=== PATIENT | male | born 1955 | race Caucasian/White ===

== ENCOUNTER 2017-06-09 09:58 | Emergency (ER) | payer OTHER ==
[2017-06-09 10:06] VITALS: BMI 26.7
[2017-06-09 10:08] VITALS: TEMP 98.5
[2017-06-09 11:04] LABS: URINE BILIRUBIN NEGATIVE (NEGATIVE); URINE BLOOD 1+ (NEGATIVE); URINE CLARITY Clear (Clear); URINE COLOR Yellow (YELLOW); URINE GLUCOSE (UA) NORMAL (Normal); URINE LEUKOCYTE ESTERASE NEG Leu/uL (Negative); URINE NITRATE NEGATIVE (NEGATIVE); URINE PROTEIN 1+ mg/dL (NEGATIVE); URINE UROBILINOGEN NORMAL mg/dL (0.2-1.0)
[2017-06-09] MEDS ORDERED: Lactated Ringer's 1,000 ML IV ONE (11:04)
--- NOTE | 2017-06-09 11:09 | C.PDOC ---
History Of Present Illness Patient is a 62 y/o male who presents to the ED with a complaint of left flank pain for the last few days. Patient admits pain is localized with intermittent radiation to left abdominal wall; worsens with movement. Denies fever, chills, headache, dizziness, CP, SOB, dyspnea, diaphoresis, palpitation, abdominal pain , vomiting, diarrhea, UTI symptoms, hematuria. Ambulate to ED for evaluation, appears in pain. Time Seen by Provider: 06/09/17 10:23 Chief Complaint (Nursing): Male Genitourinary History Per: Patient History/Exam Limitations: no limitations Onset/Duration Of Symptoms: Days Current Symptoms Are (Timing): Still Present Quality Of Discomfort: "Pain" Associated Symptoms: denies: Fever, Chills, Vomiting, Diarrhea, Urinary Symptoms Recent travel outside of the [place]: No Past Medical History Reviewed: Historical Data, Nursing Documentation, Vital Signs Vital Signs: Last Vital Signs Temp 98.5 F 06/09/17 10:06 Pulse 78 06/09/17 13:39 Resp 20 06/09/17 13:39 BP 132/80 06/09/17 13:39 Pulse Ox 100 06/09/17 15:18 - Medical History PMH: No Chronic Diseases Surgical History: No Surg Hx Family History: States: Unknown Family Hx - Social History Hx Alcohol Use: Yes Hx Substance Use: No - Immunization History Hx Tetanus Toxoid Vaccination: No Hx Influenza Vaccination: No Hx Pneumococcal Vaccination: No Review Of Systems Constitutional: Negative for: Fever, Chills Gastrointestinal: Positive for: Other (left flank pain). Negative for: Vomiting , Abdominal Pain, Diarrhea Physical Exam - Physical Exam Appears: Well, Non-toxic, No Acute Distress, Other (uncomfortable, in pain) Skin: Normal Color, Warm, Dry, No Rash Head: Normacephalic Eye(s): bilateral: PERRL Nose: No Flaring Oral Mucosa: Moist Throat: No Erythema Neck: Supple Chest: Symmetrical Cardiovascular: Rhythm Regular, No Murmur Respiratory: No Decreased Breath Sounds, No Accessory Muscle Use, No Rales, No Rhonchi, No Wheezing Gastrointestinal/Abdominal: Soft, No Tenderness, No Distention, No Guarding, No Rebound, Other (Left flank tenderness) Back: No CVA Tenderness Extremity: Normal ROM, No Swelling Neurological/Psych: Oriented x3, Normal Speech, Normal Cognition ED Course And Treatment - Laboratory Results Result Diagrams: 06/09/17 11:50 06/09/17 11:50 Lab Interpretation: Normal O2 Sat by Pulse Oximetry: 100 Pulse Ox Interpretation: Normal - CT Scan/US A/P Other Rad Studies (CT/US): Interpreted By Me, Read By Radiologist CT/US Interpretation: PROCEDURE: CT Abdomen and Pelvis without intravenous contrast. HISTORY: abd pain, left flank pain. COMPARISON: None. TECHNIQUE: Axial and reformatted coronal and sagittal CT images of the abdomen and pelvis were obtained without IV or oral contrast administration.. Contrast Dose : 0. Radiation dose: Total exam DLP = 403.19 mGy-cm. This CT exam was performed using one or more of the following dose reduction techniques: Automated exposure control, adjustment of the mA and/or kV according to patient size, and/or use of iterative reconstruction technique. FINDINGS: LOWER THORAX : Unremarkable. LIVER: Unremarkable. No gross lesion or ductal dilatation. GALLBLADDER AND BILE DUCTS: Unremarkable. PANCREAS: Unremarkable. No gross lesion or ductal dilatation. SPLEEN: Unremarkable. ADRENALS: Unremarkable. No mass. KIDNEYS AND URETERS: There is mild left hydronephrosis and hydroureter up to 6.5 x 4.1 millimeter calcaneus at the distal left ureter adjacent to the UV junction. No evidence of right hydronephrosis. No evidence of other renal calculi. VASCULATURE: Unremarkable. No aortic aneurysm. BOWEL : Unremarkable. No obstruction. No gross mural thickening. APPENDIX: Unremarkable. Normal appendix. PERITONEUM: Unremarkable. No free fluid. No free air. LYMPH NODES: Unremarkable. No enlarged lymph nodes. BLADDER: Mild diffuse urinary bladder wall thickening is noted PE. REPRODUCTIVE: Moderately enlarged heterogeneous prostate is also noted. BONES: No acute fracture. OTHER FINDINGS: None. IMPRESSION: Mild left hydronephrosis and hydroureter up to 6.5 x 4.1 millimeter calculus at the distal left ureter adjacent to the UV junction. No evidence of other acute pathology in the abdomen and pelvis. Mild urinary bladder wall thickening. Moderately enlarged prostate. Progress Note: Abdomen/pelvis CT and blood work ordered. Tylenol, Toradol, Zofran, and IV fluids administered. Pt was OBS in ED for 3 hours and reports moderate improvement in pain. Pr repors, pain is 2/10 now. Afebrile, hemodynamicaly stable. non-toxic. Tolerate Po wellin E. ENT: No acute findings. neck: supple. Lungs: CTA B/L, BS equal B/L. Abd: benign, (-) guarding, (-) rebound. back: (-) CVA tenderness. blood work review and appears normal. Imaging (+) 6#4mm left distal ureter calcul with mild left hydronephrosis, no other acute pathology. results review and discussed with pt. Advised and ref. to f/u with Urology in 2-3 days for re-eavl. return if any new changes. Disposition Counseled Patient/Family Regarding: Studies Performed, Diagnosis, Need For Followup, Rx Given - Disposition Referrals: Tory Buchanan MD [Staff Provider] - Disposition: HOME/ ROUTINE Disposition Time: 12:30 Condition: STABLE Additional Instructions: ENCOURAGE FLUIDS URINE STRAIN TAKE PAIN MEDICATION PRESCRIBED FOLLOW UP WITH UROLOGY IN 1-2 DAYS FOR RE-EVALUATION. RETURN TO ED IF ANY WORSENING OR NEW CHANGES. Prescriptions: Ciprofloxacin [Cipro] 1 tab PO BID #14 tab Tamsulosin [Flomax] 0.4 mg PO DAILY #14 cap traMADol [Ultram] 50 mg PO TID #7 tab Instructions: Kidney Stones (ED) Forms: [employer] (Vincentian) Print Language: WOLOF - Clinical Impression Clinical Impression: Kidney stones - Scribe Statement The provider has reviewed the documentation as recorded by the Scribe Casandra Orozco All medical record entries made by the Scribe were at my direction and personally dictated by me. I have reviewed the chart and agree that the record accurately reflects my personal performance of the history, physical exam, medical decision making, and the department course for this patient. I have also personally directed, reviewed, and agree with the discharge instructions and disposition.
[2017-06-09] MEDS ORDERED: Lactated Ringer's 1,000 ML ONE (11:27)
[2017-06-09 11:54] LABS: BASO % 0.4 % (0.0-2.0); EOS % 0.7 % (0.0-4.0); HEMOGLOBIN 16.1 g/dL (12.0-18.0); LYMPH # 1.3 K/uL (1.0-4.3); LYMPH % 20.2 % (20.0-40.0); MEAN CELL VOLUME 93.9 fL (80.0-94.0); MEAN CORPUSCULAR HEMOGLOBIN 32.8 pg (27.0-31.0); MEAN CORPUSCULAR HGB CONC 34.9 g/dL (33.0-37.0); MEAN PLATELET VOLUME 7.3 fL (7.2-11.7); MONO # 0.6 K/uL (0.0-0.8); NEUT # 4.5 K/uL (1.8-7.0); NEUT % 68.7 % (50.0-75.0); RBC 4.93 Mil/uL (4.40-5.90)
[2017-06-09 11:57] LABS: WHITE BLOOD COUNT 6.5 K/uL (4.8-10.8)
--- NOTE | 2017-06-09 12:08 | CT ---
PROCEDURE: CT Abdomen and Pelvis without intravenous contrast HISTORY: abd pain, left flank pain COMPARISON: None. TECHNIQUE: Axial and reformatted coronal and sagittal CT images of the abdomen and pelvis were obtained without IV or oral contrast administration.. Contrast Dose: 0 Radiation dose: Total exam DLP = 403.19 mGy-cm. This CT exam was performed using one or more of the following dose reduction techniques: Automated exposure control, adjustment of the mA and/or kV according to patient size, and/or use of iterative reconstruction technique. FINDINGS: LOWER THORAX: Unremarkable. LIVER: Unremarkable. No gross lesion or ductal dilatation. GALLBLADDER AND BILE DUCTS: Unremarkable. PANCREAS: Unremarkable. No gross lesion or ductal dilatation. SPLEEN: Unremarkable. ADRENALS: Unremarkable. No mass. KIDNEYS AND URETERS: There is mild left hydronephrosis and hydroureter up to 6.5 x 4.1 millimeter calcaneus at the distal left ureter adjacent to the UV junction. No evidence of right hydronephrosis. No evidence of other renal calculi. VASCULATURE: Unremarkable. No aortic aneurysm. BOWEL: Unremarkable. No obstruction. No gross mural thickening. APPENDIX: Unremarkable. Normal appendix. PERITONEUM: Unremarkable. No free fluid. No free air. LYMPH NODES: Unremarkable. No enlarged lymph nodes. BLADDER: Mild diffuse urinary bladder wall thickening is noted PE REPRODUCTIVE: Moderately enlarged heterogeneous prostate is also noted. BONES: No acute fracture. OTHER FINDINGS: None. IMPRESSION: Mild left hydronephrosis and hydroureter up to 6.5 x 4.1 millimeter calculus at the distal left ureter adjacent to the UV junction. No evidence of other acute pathology in the abdomen and pelvis. Mild urinary bladder wall thickening. Moderately enlarged prostate.
[2017-06-09 12:14] LABS: ALB/GLOB RATIO 1.1 (1.0-2.1); ALBUMIN 3.9 g/dL (3.5-5.0); ALT/SGPT 37 U/L (21-72); AST/SGOT 36 U/L (17-59); BLOOD UREA NITROGEN 13 mg/dL (9-20); CALCIUM 8.7 mg/dl (8.6-10.4); GFR AFRICAN-AMERICAN > 60; GFR NON-AFRICAN AMERICAN > 60
[2017-06-09 13:40] VITALS: BP 132/80; PULSE 78; RESP 20
[2017-06-09 13:42] VITALS: O2SAT 100
== END 2017-06-09 13:39 | disposition home or self-care (01) ==
LOC: C.ER 09:58
DX: N13.2 Hydronephrosis with renal and ureteral calculous obstruction (principal)
CPT/HCPCS: 74176; 80053; 81001; 85025; 96361; 96374; 96375; 99285; J1885; J2405; J7120